=== PATIENT | female | born 1975 | race Caucasian/White ===

== ENCOUNTER 2017-08-20 10:07 | Emergency (ER) | payer OTHER ==
[2017-08-20 10:27] VITALS: BP 100/65
--- NOTE | 2017-08-20 11:02 | UC ---
Ear Complaint HPI - HPI Summary HPI Summary: 42 yo WF c/o right ear pain associated with sore throat x 2 weeks but now worsening, denies f/c - History of Current Complaint Chief Complaint: UCEar Stated Complaint: EAR PAIN Time Seen by Provider: 08/20/17 10:34 Hx Obtained From: Patient Hx Last Menstrual Period: 05/19/14 ?: Yes Onset/Duration: Lasting Weeks Severity Initially: Moderate Severity Currently: Moderate Pain Intensity: 7 Aggravating Factors: Nothing Alleviating Factors: Nothing - Allergies/Home Medications Allergies/Adverse Reactions: Allergies Allergy/AdvReac Type Severity Reaction Status Date / Time amoxicillin Allergy Edema Verified 08/20/17 10:28 sulfamethoxazole Allergy Edema Verified 08/20/17 10:28 [From Bactrim] trimethoprim [From Bactrim] Allergy Edema Verified 08/20/17 10:28 Home Medications: Home Medications Dextroamphetamine/Amphetamine [Adderall Xr 10 mg Capsule] 10 mg PO DAILY [History Confirmed 08/20/17] LORazepam TAB(*) [Ativan 0.5 MG TAB (*)] 0.5 mg PO BEDTIME 08/20/17 [History Confirmed 08/20/17] Venlafaxine EXT RELEASE CAP* [Effexor Xr CAP*] 187.5 mg PO DAILY 08/20/17 [ History Confirmed 08/20/17] Ziprasidone CAP* [Geodon CAP*] 40 mg PO DAILY 08/20/17 [History Confirmed ] PMH/Surg Hx/FS Hx/Imm Hx Previously Healthy: Yes Psychological History: Anxiety, Depression - Surgical History Surgical History: Yes Surgery Procedure, Year, and Place: shoulder surgery - Social History Alcohol Use: None Substance Use Type: None Smoking Status (MU): Never Smoked Tobacco Review of Systems Constitutional: Negative Skin: Negative Eyes: Negative ENT: Sore Throat, Ear Ache Respiratory: Negative Cardiovascular: Negative Gastrointestinal: Negative Genitourinary: Negative Motor: Negative Neurovascular: Negative Musculoskeletal: Negative Neurological: Negative Psychological: Negative All Other Systems Reviewed And Are Negative: Yes Physical Exam Triage Information Reviewed: Yes Vital Signs: Initial Vital Signs Temp 37.2 C 08/20/17 10:23 Pulse 81 08/20/17 10:23 Resp 19 08/20/17 10:23 BP 100/65 08/20/17 10:23 Pulse Ox 100 08/20/17 10:23 Eye Exam: Normal ENT Exam: Normal ENT: Positive: Pharynx normal, TM red - right, Other - TTP with pulling of right pinna, right posterior auricular LN tenderness Dental Exam: Normal Neck exam: Normal Neck: Positive: 1 Respiratory Exam: Normal Cardiovascular Exam: Normal Abdominal Exam: Normal Musculoskeletal Exam: Normal Neurological Exam: Normal Psychological Exam: Normal Skin Exam: Normal Ear Complaint Course/Dx - Differential Dx/Diagnosis Differential Diagnosis/HQI/PQRI: Otitis Externa, Otitis Media Provider Diagnoses: Right OE. Right OM Discharge - Discharge Plan Condition: Stable Disposition: HOME Prescriptions: ceFUROXime TAB(*) [Ceftin TAB 250 MG(*)] 500 mg PO BID 7 Days #14 tab Ciproflox/Dexameth OTIC.SUSP* [Ciprodex OTIC.SUSP*] 4 drop .SEE ORDER BID #1 [id number] Patient Education Materials: Otitis Externa (ED), Ear Infection (ED) Referrals: Berkley Marshall DO [Primary Care Provider] - Additional Instructions: take medications as directed
== END 2017-08-20 11:01 | disposition home or self-care (01) ==
LOC: UCEAST 10:07
DX: H66.91 Otitis media, unspecified, right ear (principal); H60.91 Unspecified otitis externa, right ear; Z88.3 Allergy status to other anti-infective agents; Z88.2 Allergy status to sulfonamides
CPT/HCPCS: 99212; G0463

== ENCOUNTER 2018-10-13 13:22 | Emergency (ER) | payer OTHER ==
[2018-10-13 13:34] VITALS: BP 107/72
--- NOTE | 2018-10-13 13:42 | UC ---
Dental HPI - HPI Summary HPI Summary: right lower last molar is broken--has plans for an extraction this week pain is worsening and radiates in to right ear no fevers managing secretions with ease - History of Current Complaint Chief Complaint: UCDentalProblem Stated Complaint: TOOTH/EAR PAIN Time Seen by Provider: 10/13/18 13:28 Hx Obtained From: Patient Hx Last Menstrual Period: September 24 ?: No Onset/Duration: Gradual Onset, Lasting Weeks, Still Present, Worse Since - past couple of days Pain Intensity: 10 Pain Scale Used: 0-10 Numeric Alleviating Factor(s): Nothing Related History: Previous Dental Care on Same Tooth - Allergies/Home Medications Allergies/Adverse Reactions: Allergies Allergy/AdvReac Type Severity Reaction Status Date / Time amoxicillin Allergy Edema Verified 10/13/18 13:33 sulfamethoxazole Allergy Edema Verified 10/13/18 13:33 [From Bactrim] trimethoprim [From Bactrim] Allergy Edema Verified 10/13/18 13:33 Home Medications: Home Medications Vilazodone (NF) [Viibryd (NF)] 20 mg PO DAILY 10/13/18 [History Confirmed ] PMH/Surg Hx/FS Hx/Imm Hx Previously Healthy: No - Aspergers, adhd Psychological History: Depression - Surgical History Surgical History: Yes Surgery Procedure, Year, and Place: shoulder surgery - Family History Known Family History: Positive: None - Social History Occupation: Disabled Lives: With Family Alcohol Use: None Substance Use Type: None Smoking Status (MU): Never Smoked Tobacco Review of Systems All Other Systems Reviewed And Are Negative: Yes Constitutional: Positive: Negative Skin: Positive: Negative Eyes: Positive: Negative ENT: Positive: Dental Pain Respiratory: Positive: Negative Cardiovascular: Positive: Negative Gastrointestinal: Positive: Negative Genitourinary: Positive: Negative Motor: Positive: Negative Neurovascular: Positive: Negative Musculoskeletal: Positive: Negative Neurological: Positive: Negative Psychological: Positive: Negative Is Patient Immunocompromised?: No Physical Exam Triage Information Reviewed: Yes Appearance: Well-Appearing, No Pain Distress, Well-Nourished Vital Signs: Initial Vital Signs Temp 97.8 F 10/13/18 13:30 Pulse 72 10/13/18 13:30 Resp 16 10/13/18 13:30 BP 107/72 10/13/18 13:30 Pulse Ox 98 10/13/18 13:30 Vital Signs Reviewed: Yes Eye Exam: Normal Eyes: Positive: Conjunctiva Clear ENT Exam: Normal ENT: Positive: Normal ENT inspection, Hearing grossly normal, Pharynx normal, TMs normal, Dental tenderness, Uvula midline. Negative: Nasal congestion, Trismus, Muffled voice, Hoarse voice, Sinus tenderness Dental Exam: Other Dental: Positive: Percussion Tenderness @ - last lower right molar, Gross Decay/ Caries @ Neck exam: Normal Neck: Positive: Supple, Nontender, No Lymphadenopathy Respiratory Exam: Normal Respiratory: Positive: Chest non-tender, Lungs clear, Normal breath sounds, No respiratory distress, No accessory muscle use Cardiovascular Exam: Normal Cardiovascular: Positive: RRR, No Murmur, Pulses Normal, Brisk Capillary Refill Musculoskeletal Exam: Normal Musculoskeletal: Positive: Strength Intact, ROM Intact, No Edema Neurological Exam: Normal Neurological: Positive: Alert, Muscle Tone Normal Psychological Exam: Normal Skin Exam: Normal Dental Complaint Course/Dx - Course Course Of Treatment: continue tylenol ibuprofen for pain as well as topical anbesol add clindamycin follow with dentist as planned - Differential Dx/Diagnosis Provider Diagnosis: Pain due to dental caries Discharge - Sign-Out/Discharge Documenting (check all that apply): Patient Departure All imaging exams completed and their final reports reviewed: No Studies - Discharge Plan Condition: Stable Disposition: HOME Prescriptions: Clindamycin Cap(NF) [Clindamycin Cap 300 mg Cap(NF)] 300 mg PO TID 10 Days #30 cap Patient Education Materials: Acetaminophen (By mouth), Ibuprofen (By mouth), Probiotic (By mouth), Toothache (ED), Warm Compress or Soak (ED) Referrals: Berkley Marshall DO [Primary Care Provider] - If Needed Additional Instructions: Follow with dentist as planned - Billing Disposition and Condition Condition: STABLE Disposition: Home
== END 2018-10-13 13:50 | disposition home or self-care (01) ==
LOC: UCEAST 13:22
DX: K08.89 Other specified disorders of teeth and supporting structures (principal); K02.9 Dental caries, unspecified; H92.01 Otalgia, right ear; F84.5 Asperger's syndrome; F90.9 Attention-deficit hyperactivity disorder, unspecified type; F32.9 Major depressive disorder, single episode, unspecified; Z88.0 Allergy status to penicillin; Z88.2 Allergy status to sulfonamides
CPT/HCPCS: 99212; G0463